=== PATIENT | male | born 1940 | race Caucasian/White ===

== ENCOUNTER 2017-11-11 01:34 | Emergency (ER) | payer MEDICARE, OTHER, SELFPAY ==
[2017-11-11 01:36] VITALS: BP 150/106; PULSE 107; RESP 17; TEMP 35.8; O2SAT 95; BMI 22.5
--- NOTE | 2017-11-11 01:47 | ED.VISSUMM ---
- ER Visit Summary Date of Service: 11/11/17 Chief Complaint: [] Left leg wound check History of Present Illness: The patient is a 77 M comes in for wound check on his left leg. He had a saphenous vein stripped a week ago. He has been having some mild tenderness postoperative. Came in for further evaluation to make sure it is not infected. Is on Coumadin. INR 3.2 today. Has not noticed any redness or warmth. Physical Examination: [] Vital signs reviewed General: Well-nourished well-developed Head: Normocephalic atraumatic Eyes: Pupils equal round and reactive to light extraocular movements intact ENT: TMs clear no hemotympanum no trauma Neck: Nontender full range of motion Cardiovascular: Regular rate rhythm no murmurs normal S1-S2 Respiratory: No distress clear to auscultation bilaterally chest nontender Abdomen: Soft nontender nondistended normal bowel sounds no masses Back: Nontender no CVA tenderness Extremities: She has bruising noted the left inner thigh all the way down to the proximal left calf throughout the saphenous region. The saphenous vein is palpated. No thrombophlebitis or infection. No cellulitis. Neuro alert oriented cranial nerves II through XII intact normal strength sensation reflexes Test Results: [] Emergency Department Course and Treatment: [] Reassured. At this time I think he just has postoperative soreness and bruising. No infection. He is on Coumadin. I do not feel he has a DVT. Treatment Plan: [] Disposition: [] Impression: [] Post operative left saphenous vein pain - bruising This note was generated with [employer] dictation software. It may contain incorrect words, spelling, and punctuation that were not noted in review of the chart prior to signing ED Disposition - Plan for ED Patient: Chief Complaint: Lower Extremity Injury Referrals: Jaime Cardona III, MD [Primary Care Provider] -
--- NOTE | 2017-11-11 01:49 | ED.DEP ---
ED Disposition - Plan for ED Patient: Disposition: Home or Assisted Living Chief Complaint: Lower Extremity Injury Instructions: ED Post Op Pain Referrals: Jaime Cardona III, MD [Primary Care Provider] - Doctor,Your [STAFF PHYSICIAN] -
[2017-11-11 01:59] VITALS: RESP 18
== END 2017-11-11 02:00 | disposition home or self-care (01) ==
LOC: ED 01:55
PROVIDERS: Emergency Provider Emergency Medicine; Family Provider Family Medicine; PCP Family Medicine
DX: G89.18 Other acute postprocedural pain (principal); Z98.890 Other specified postprocedural states; Z79.01 Long term (current) use of anticoagulants
CPT/HCPCS: 99282